=== PATIENT | male | born 1985 | race Caucasian/White ===

== ENCOUNTER 2020-04-26 08:07 | Outpatient (CLI) | payer OTHER, SELFPAY ==
--- NOTE | ~2020-04-26 | US_ITS ---
EXAMINATION: US right upper quadrant DATE: 04/26/2020 09:06 INDICATION: Gallbladder polyp. Cholesterolosis of the gallbladder. TECHNIQUE: Multiple grayscale and Doppler ultrasound images of the abdomen were obtained. COMPARISON: Ultrasound 10/27/2019 FINDINGS: The visualized portions of the head, body, and tail of the pancreas are normal. The liver i s normal without focal lesions. There is normal flow in main portal vein. The gallbladder is normal i n size and contains sludge and a 6 mm polyp, likely a benign cholesterol polyp. No gallstones or gall bladder wall thickening. There was no sonographic Ma sign. The common duct is normal and measures 3 mm. IMPRESSION: 1. Stable 6 mm gallbladder polyp, likely benign. No follow-up needed. Reviewed, dictated and finalized at location A.
== END 2020-04-26 08:08 | disposition home or self-care (01) ==
PROVIDERS: PCP Internal Medicine; Visit Provider Surgery
DX: K82.4 Cholesterolosis of gallbladder (principal)
CPT/HCPCS: 76705

== ENCOUNTER → 2020-11-05 07:57 | Outpatient (CLI) | payer OTHER, SELFPAY ==
--- NOTE | ~2020-11-05 | US_ITS ---
EXAMINATION: US abdomen limited DATE: 11/05/2020 08:16 INDICATION: Gallbladder polyp. Cholesterolosis of the gallbladder. TECHNIQUE: Multiple grayscale and Doppler ultrasound images of the abdomen were obtained. COMPARISON: Ultrasound 04/26/2020 FINDINGS: Abdominal aorta is normal in caliber. The visualized portions of the head, body, and tail o f the pancreas are normal. The liver is normal without focal lesion. There is normal flow in main por art vein. The gallbladder is normal in size and contains a 7 mm polyp. No gallstones. No gallbladder wall thickening or sonographic Ma sign. The common duct is normal and measures 3 mm. IMPRESSION: 1. 7 mm gallbladder polyp, which measured 6 mm on 10/27/2019. The differential diagnosis includes jean ign polyp, adenoma, and small cancer. Abdominal ultrasound is recommended in one year. Reviewed, dictated and finalized at location B. GAUGER AND LUBRICATOR TENDER IMPRESSION: 1. 7 mm gallbladder polyp, which measured 6 mm on 10/27/2019. The differential diagnosis includes benign polyp, adenoma, and small cancer. Abdominal ultrasoun d is recommended in one year.
== END ==
PROVIDERS: PCP Internal Medicine; Visit Provider Surgery
DX: K82.4 Cholesterolosis of gallbladder (principal)
CPT/HCPCS: 76705

== ENCOUNTER → 2021-11-17 07:59 | Outpatient (CLI) | payer OTHER, SELFPAY ==
--- NOTE | ~2021-11-17 | US_ITS ---
EXAMINATION: US abdomen limited DATE: 11/17/2021 08:30 INDICATION: Cholesterolosis of the gallbladder TECHNIQUE: Multiple grayscale and Doppler ultrasound images of the abdomen were obtained. COMPARISON: 11/05/2020 FINDINGS: The head, body, and tail of the pancreas are normal. The liver is normal with normal echoge nicity and echotexture. No surface nodularity. Normal hepatopetal flow in the main portal vein. There is a stable 7 mm gallbladder polyp. A second 3 mm polyp is noted. No stones are identified. There is no gallbladder wall thickening or pericholecystic fluid. The normal common bile duct measures 3 mm. There was no sonographic Ma sign. IMPRESSION: 1. Stable 7 mm gallbladder polyp with differential as previously described including benign polyp, ad enoma, and small cancer. Recommend ultrasound follow-up in one year. Reviewed, dictated and finalized at location B. NICAL MAINTENANCE SPECIALIST IMPRESSION: 1. Stable 7 mm gallbladder polyp with differential as previously described incl uding benign polyp, adenoma, and small cancer. Recommend ultrasound follow-up i n one year.
== END ==
PROVIDERS: PCP Internal Medicine; Visit Provider Surgery
DX: K82.4 Cholesterolosis of gallbladder (principal)
CPT/HCPCS: 76705

== ENCOUNTER → 2022-11-09 07:40 | Outpatient (CLI) | payer OTHER, SELFPAY ==
--- NOTE | ~2022-11-09 | US_ITS ---
Limited Abdominal Sonogram: Real-time sonographic imaging of the right upper quadrant was performed. Clinical History: Cholesterolosis of gallbladder Findings: The liver appears mild echogenic, with no evidence of mass lesion or bile duct dilatation. Main portal vein demonstrates normal direction of flow. The gallbladder is well distended, and demon strates a nonmobile apparent 7 mm gallbladder wall polyp. The common bile duct measures 3 mm. The vi sualized pancreas, aorta, and IVC are unremarkable. Right kidney measures 11.2 cm in length, without evidence of hydronephrosis. Impression: Probable 7 mm gallbladder wall polyp. Probable diffuse fatty infiltration of the liver. Reviewed, dictated and finalized at location M. RMATICA DEVELOPER Impression: Probable 7 mm gallbladder wall polyp. Probable diffuse fatty infiltration of the liver.
== END ==
PROVIDERS: PCP Internal Medicine; Visit Provider Surgery
DX: K82.4 Cholesterolosis of gallbladder (principal)
CPT/HCPCS: 76705

== ENCOUNTER 2024-04-25 09:29 | Outpatient (CLI) | payer OTHER, SELFPAY ==
[2024-05-11 10:37] VITALS: BMI 29.4
--- NOTE | 2024-05-11 10:37 | WPDHOMESLEEP ---
Sleep Study - Home Unattended Date of Study: 04/25/24 Ordering Provider: Maddy Adan NP Interpreting Provider: Laureen Hannah, DO Home Sleep Study Type: Watch PAT Height: 1.78 m Weight: 92.986 kg Body Mass Index: 29.4 Neck Circumference (inches): 15.5 [place]: 21 Reason for Sleep Study Snoring, daytime hypersomnia Sleep History The patient is a 39-year-old male that had a sleep study ordered by his primary care for evaluation of sleep apnea. The patient rarely awakens from sleep short of breath. He rarely awakens at night with heartburn, belching or cough. He constantly snores loudly enough that others complain. He occasionally has trouble sleeping when he has a cold. He denies waking up gasping for air throughout the night. He rarely has breathing problems at night observed by himself or others. He occasionally sweats excessively at night. He rarely has heart palpitations or irregular heartbeats during the night. He frequently falls asleep during the day but rarely falls asleep while driving. He rarely experiences loss of muscle tone when extremely emotional. He frequently has trouble at school or work due to sleepiness. He denies sleep paralysis. He occasionally experiences vivid dreamlike scenes upon awakening or falling asleep. He denies feeling afraid of going to sleep. He rarely has nightmares. He occasionally remembers his dreams. He constantly has thoughts racing through his mind. He occasionally feels sad, depressed and anxious. He frequently has muscular tension. He rarely notices parts of his body jerk. He occasionally kicks during the night. He rarely has crawling and aching feelings in his legs but occasionally has leg pain during the night. He occasionally grinds his teeth during sleep and occasionally awakens with morning jaw pain. He is rarely bothered by pain during the day but occasionally awakened by pain during the night. He constantly wakes up feeling stiff in the morning. He occasionally wakes up with sore or achy muscles. He occasionally wakes up with pain in the neck, spine and other joints. He goes to bed between 9:30-10 p.m. on both weekdays and weekends. It takes him less than 5 minutes to fall asleep. He wakes up 1-2 times throughout the night for unknown reasons but is able to fall back asleep relatively quickly. He wakes up at 4:00 a.m. on weekdays and at 6:00 a.m. on the weekends. He typically gets 6-7 hours of sleep per night. He stays in bed for 15-20 minutes after waking up in the morning. He currently lives with his and 2 children. He denies consuming any caffeinated beverages within 2 hours of bedtime. He denies engaging in physical exercise before bedtime. He denies reading and watching television before falling asleep. He will take naps in afternoon or the evening but they are not refreshing. He consumes 1-2 caffeinated beverages per day. He consumes less than 1 alcoholic beverage per day. He denies tobacco and recreational drug use. [facility] Past Medical History Medical History Allergies Chest pain Hearing loss Penile lesion Surgical History Surgical History History of eye surgery left eye Family History Family History Father Acute myocardial infarction Diabetes mellitus Mother Hypertension Unknown Hypertension Father Diabetes mellitus FH myocardial infarction male first degree age known, Onset Age: 59 Mother Hypertension Social History Social History Smoking status: Never smoker Alcohol intake: current Alcohol use details: Pt drinks rarely. Lack of Transportation: No Lack of Food: Never True Current Housing: I Have Housing Concerned About Future Housing: No Difficulty Paying Gas/Electric Bills:
== END 2024-04-26 08:42 | disposition home or self-care (01) ==
LOC: ANHCSM 09:30
PROVIDERS: PCP Internal Medicine; Visit Provider Nurse Practitioner
DX: G47.19 Other hypersomnia (principal); R06.81 Apnea, not elsewhere classified
CPT/HCPCS: 95800

== ENCOUNTER 2024-08-15 07:58 | Outpatient (CLI) | payer OTHER, SELFPAY ==
--- NOTE | 2024-09-01 14:01 | WPDSLEEPSTUD ---
Sleep Study Date of Study: 08/15/24 Ordering Provider: Laureen Hannah DO Interpreting Physician: Leilani Henderson MD Sleep Study Type: Split Polysomnogram Height: 1.78 m Weight: 92.986 kg Body Mass Index: 29.4 Neck Circumference (inches): 16 [place]: 21 Reason for Sleep Study Hypersomnolence * 04/25/2024 Home sleep test showed an Apnea Hypopnea index of 2.3 with desaturation down to 81%. This is not consistent with sleep disordered breathing. Due to the severity of the patient's daytime hypersomnia, further evaluation is warranted. He returns for further testing. Sleep History Prosper Gutierrez is a 39-year-old male who had a home sleep test 04/25/2024 for excessive sleepiness. The history is taken from his prior sleep questionnaire in April. The patient rarely awakens from sleep short of breath. He rarely awakens at night with heartburn, belching or coughing. He constantly snores loudly enough that others complain. He occasionally has trouble sleeping when he has a cold. He denies waking up gasping for air during the night. He rarely has breathing problems at night observed others. He occasionally sweats excessively at night. He rarely has heart palpitations or irregular heartbeats during the night. He frequently falls asleep during the day and even rarely falls asleep while driving. He rarely experiences loss of muscle tone when extremely emotional. He frequently has trouble at work due to sleepiness. He denies sleep paralysis. He occasionally experiences vivid dreamlike scenes upon awakening or falling asleep. He denies feeling afraid of going to sleep. He rarely has nightmares. He occasionally remembers his dreams. He constantly has thoughts racing through his mind. He occasionally feels sad, depressed and anxious. He frequently has muscular tension. He rarely notices parts of his body jerking. He occasionally kicks during the night. He rarely has crawling and aching feelings in his legs but occasionally has leg pain during the night. He occasionally grinds his teeth during sleep and occasionally awakens with morning jaw pain. He is rarely bothered by pain during the day but occasionally awakened by pain during the night. He constantly wakes up feeling stiff in the morning. He occasionally wakes up with sore or achy muscles. He occasionally wakes up with pain in the neck, spine and other joints. Normal bedtime is between 9:30-10 p.m. on both weekdays and weekends. He falls asleep within 5 minutes to fall asleep. He wakes up 1-2 times throughout the night for unknown reasons but is able to return to sleep relatively quickly. He wakes up at 4:00 a.m. on weekdays and at 6:00 a.m. on the weekends. He typically gets 6-7 hours of sleep per night. He stays in bed for 15-20 minutes after waking. He currently lives with his and 2 children. He takes naps in afternoon or the evening however a short nap lasting 10-15 minutes is not refreshing. Habits: Tobacco: none Caffeine: 1-2 caffeinated beverages per day. Alcohol: Less than 1 alcoholic beverage per day. Recreational substances: none [facility] Past Medical History Medical History Allergies Chest pain Hearing loss Penile lesion Surgical History Surgical History History of eye surgery left eye Family History Family History Father Acute myocardial infarction Diabetes mellitus Mother Hypertension Unknown Hypertension Father Diabetes mellitus FH myocardial infarction male first degree age known, Onset Age: 59 Mother Hypertension Social History Social History Smoking status: Never smoker Alcohol intake: current Alcohol use details: Pt drinks rarely. Lack of Transportation: No Lack of Food: Never True Current Housing: I Have Housing Concerned About Future Housing: No Difficulty Paying Gas/Electric Bills: No Difficulty Paying for Meds: No Currently Unemployed: No Education: Master's Degree or Higher Difficulty w/ Childcare or Family Care: No Medications Home Medications Medication Instructions Recorded Confirmed Type cholecalciferol (vitamin D3) 125 125 mcg PO DAILY 03/12/21 03/31/24 History mcg (5,000 unit) capsule (Dialyvite Vitamin D) cetirizine 10 mg tablet (Zyrtec) 10 mg PO DAILY PRN 03/17/23 03/31/24 History Sleep Procedure A split night polysomnogram using the [employer] SleepSkyway Software multi-channel system recorded the standard physiologic parameters including EEG, EOG, submentalis EMG, anterior tibialis EMG, EKG, body position, nasal and oral airflow using nasal pressure sensor and thermistor. Respiratory parameters of chest and abdominal movements were recorded with Respiratory Inductance Plethysmography belts. Oxygen saturation was recorded by pulse oximetry. Video monitoring was also performed. Sleep stages, periodic limb movements, and EEG arousals were scored in 30 second epochs according to the criteria of the AASM Scoring Manual. The Apnea-Hypopnea Index was calculated using CMS guidelines for definition of hypopnea while scoring respiratory events. No sleep aid was used at the start of the study. After the baseline portion the patient met criteria for a titration with an AHI of 17.1 and desaturation to 86%. He used a medium ResMed AirTouch F20 fullface mask and heated humidity, initial pressure was 5 cm, increased to 6 cm to promote sleep. Titration continued to a maximum of CPAP 11 cm. At CPAP 11 cm, the patient spent 142.5 minutes in bed, 39.5 minutes awake, 62 minutes in non-REM and 41 minutes in REM. The sleep efficiency was 72.3%. The residual apnea-hypopnea index was 2.9 and the lowest saturation was 93%. The patient had supine REM with improved sleep consolidation. This is the optimal pressure. Sleep Architecture Baseline During the diagnostic portion of the study, the total recording time was 186.2 minutes. The total sleep time was 136.5 minutes. Sleep latency was 5.7 minutes. There was no REM. Sleep Efficiency was 73.3%. The patient had 34 awakenings for an awakening index of 14.9. Wake after sleep onset time was 44.0 minutes. The patient spent 22.0 minutes, 16.1% of total sleep time in Stage N1. The patient spent 80.0 minutes, 58.6% in Stage N2. The patient spent 34.5 minutes, 25.3% in Stage N3. The patient spent no time in Stage REM sleep. Titration At 12:32:33 AM the patient was placed on PAP treatment and was titrated at pressures ranging from 5 cm to 11 cm water pressure. During the treatment portion of the study, the total recording time was 359.6 minutes. The total sleep time was 234.5 minutes. Sleep latency was 15.0 minutes. REM latency was 163.0 minutes. Sleep Efficiency was 65.2%. Wake after Sleep Onset time was 110.0 minutes. The patient spent 62.5 minutes, 26.7% of total sleep time in Stage N1. The patient spent 102.5 minutes, 43.7% in Stage N2. The patient spent no time in Stage N3. The patient spent 69.5 minutes, 29.6% in Stage REM. Respiratory Analysis Baseline During the diagnostic portion of the study, the patient had 39 hypopneas, no obstructive, mixed or central apneas for an overall Apnea Hypopnea Index of 17.1 events per hour. The REM Apnea Hypopnea Index was 0 as there was no REM on the baseline. The NREM Apnea Hypopnea Index was 17.1. The patient had a Central Apnea Hypopnea Index of 0. There were 16 Respiratory Effort Related Arousals resulting in a RERA index of 7.0 events per hour. The Respiratory Disturbance Index is 24.2 events per hour. There was no evidence of Jamie-Acevedo Respirations Titration During the treatment portion of the study, the patient had 5 hypopneas, 1 obstructive apnea, 1 mixed apnea, and 2 central apneas for an overall Apnea Hypopnea Index of 2.3 events per hour. The REM Apnea Hypopnea Index was 7.8. The NREM Apnea Hypopnea Index was 0. The patient had a Central Apnea Hypopnea Index of 0.5. There were 4 Respiratory Effort Related Arousals resulting in a RERA index of 1.0 events per hour. The Respiratory Disturbance Index is 3.3 events per hour. There was no evidence of Jamie-Acevedo Respirations. Arousals Baseline During the diagnostic portion of the study, there were a total of 116 arousals for an arousal index of 51.0. There were 39 respiratory arousals for an index of 17.1. There were no periodic limb movement arousals. There were 5 isolated limb movement arousals for an index of 2.2. There were 72 spontaneous arousals for an index of 31.6. Titration During the treatment portion of the study, there were a total of 143 arousals for an index of 36.6. There were 3 respiratory arousals for an index of 0.8. There were no periodic limb movement arousals. There were 16 isolated limb movement arousals for an index of 4.1. There were 124 spontaneous arousals for an index of 31.7. Periodic Limb Movements Baseline During the diagnostic portion of the study, the patient had 7 isolated limb movements with an index of 3.1. The patient had no periodic limb movements. The patient had a total of 7 limb movements with a total limb movement index of 3.1. Titration During the treatment portion of the study, the patient had 24 isolated limb movements with an index of 6.1. The patient had no periodic limb movements. The patient had a total of 24 limb movements with a total limb movement index of 6.1. Oximetry Data Baseline During the diagnostic portion of the study, the patient had an average oxygen saturation of 94% in wake with a minimum oxygen saturation of 89% and a maximum oxygen saturation of 98%. The patient had an average oxygen saturation of 93.2% in sleep with a minimum oxygen saturation of 86% and a maximum oxygen saturation of 97%. The patient had 43 oxygen desaturations resulting in an Oxygen Desaturation Index of 18.9. The patient spent 0.6 minutes, 0.3% of total sleep time with an oxygen saturation less than 88%. Titration During the treatment portion of the study, the patient had an average oxygen saturation of 95.7% in wake with a minimum oxygen saturation of 92% and a maximum oxygen saturation of 98%. The patient had an average oxygen saturation of 95.6% in sleep with a minimum oxygen saturation of 90% and a maximum oxygen saturation of 98%. The patient had 8 oxygen desaturations resulting in an Oxygen Desaturation Index of 2.0. The patient spent no time with an oxygen saturation less than 88%. Snoring Profile Snoring was [id number] and this was eliminated during the titration. Cardiac Profile Baseline During the diagnostic portion of the study, the EKG showed normal sinus rhythm. The average pulse rate was 65.2 bpm. The minimum pulse rate was 50 bpm. The maximum pulse rate was 97 bpm. No arrhythmias noted. Titration During the treatment portion of the study, the EKG showed normal sinus rhythm. The average pulse rate was 57.3 bpm. The minimum pulse rate was 44 bpm. The maximum pulse rate was 98 bpm. No arrhythmias noted. EEG Profile EEG was unremarkable, no evidence of seizures. Assessment and Plan Assessment and Plan (1) Obstructive sleep apnea: Code(s): G47.33 - Obstructive sleep apnea (adult) (pediatric) Status: Acute Assessment and Plan: This split night sleep study on 08/15/2024 shows moderate obstructive sleep apnea, the apnea-hypopnea index is 17.1 with desaturation 86% and snoring, successfully treated using a medium ResMed AirTouch F20 fullface mask and heated humidity, optimal pressure CPAP 11 cm. Events were worse in the supine position, supine index on the baseline was 26.1. Supine REM occurred at this setting with a residual AHI of 2.9. The patient should be prescribed this ResMed equipment as well as tubing, filters and reservoir. This should be used with all episodes of sleep. Compliance should be reviewed within 31-90 days of starting therapy for usage greater than 4 hours per night greater than 70% of the nights. The patient should be asked about symptoms such as excessive daytime sleepiness, quality of sleep, decreased nocturia, increased mental functioning such as memory, mood, and concentration. Data The data obtained during this sleep study is adequate for interpretation. Certification This sleep study has been reviewed by a board certified sleep medicine physician.
[2024-09-01 14:03] VITALS: BMI 29.4
== END 2024-08-16 07:21 | disposition home or self-care (01) ==
LOC: ANHCSM 07:59
PROVIDERS: PCP Internal Medicine; Visit Provider Family Medicine
DX: G47.33 Obstructive sleep apnea (adult) (pediatric) (principal); G47.19 Other hypersomnia
CPT/HCPCS: 95811

== ENCOUNTER 2024-11-13 08:13 | Outpatient (CLI) | payer OTHER, SELFPAY ==
--- NOTE | ~2024-11-13 | US_ITS ---
EXAMINATION: US abdomen limited DATE: 11/13/2024 08:32 INDICATION: Cholesterolosis of the gallbladder TECHNIQUE: Multiple grayscale and Doppler ultrasound images of the abdomen were obtained. COMPARISON: 11/09/2022 FINDINGS: The region of the pancreas is obscured. Liver has normal echogenicity and contour, with a smooth surf ginette. No liver lesion identified. No intrahepatic biliary duct dilation suspected. Portal venous flow was seen in the hepatopetal, normal direction and has normal Doppler waveform. No significant change in a single nonmobile hypoechoic nonshadowing gallbladder polyp which measures [address] udy. The gallbladder is otherwise normal in appearance. There is no cholelithiasis. The common bile duct measures 3 mm, which is normal. Sonographic Ma sign was reported as negative by the sonograp her.The visualized proximal inferior vena cava is normal. Visualized portion of the right kidney demo nstrates normal echogenicity and contour with no hydronephrosis. IMPRESSION: 1. Unchanged 6 mm gallbladder polyp. Reviewed, dictated and finalized at location B. MOTIVE INSPECTOR
== END 2024-11-13 08:14 | disposition home or self-care (01) ==
PROVIDERS: PCP Internal Medicine; Visit Provider Surgery
DX: K82.4 Cholesterolosis of gallbladder (principal)
CPT/HCPCS: 76705